=== PATIENT | male | born 1990 | race African-American/Black ===

== ENCOUNTER 2020-06-03 07:11 | Emergency (ER) | payer OTHER ==
[~2020-06-03] VITALS: Ht 195.6 cm; Wt 81.6 kg
[2020-06-03 07:11] VITALS: BP_SYST 118
[2020-06-03 09:21] VITALS: BP_SYST 118
== END 2020-06-03 08:30 | disposition home or self-care (01) ==
LOC: SED 07:11
DX: M75.102 Unspecified rotator cuff tear or rupture of left shoulder, not specified as traumatic (principal)
CPT/HCPCS: 73030; 99283